=== PATIENT | male | born 1960 | race Caucasian/White ===

== ENCOUNTER → 2019-12-08 16:01 | Outpatient (CLI) | payer OTHER, SELFPAY ==
--- NOTE | ~2019-12-08 | XR_ITS ---
EXAMINATION: XR chest 2V 12/08/2019 16:10 INDICATION: Left chest pain PROCEDURE: 2 view chest COMPARISON: 09/10/2015 FINDINGS: The lungs are clear. The cardiomediastinal silhouette is within normal limits. There are no pleural effusions. There is no pneumothorax suspected. IMPRESSION: 1: NO ACUTE CARDIOPULMONARY DISEASE. Reviewed, dictated and finalized at location A.
== END ==
PROVIDERS: PCP Family Medicine Adolescent Medicine; Visit Provider Physician Assistant
DX: R07.89 Other chest pain (principal)
CPT/HCPCS: 71046

== ENCOUNTER 2020-10-26 11:25 | Outpatient (NON) | payer OTHER, SELFPAY ==
[2020-10-26 21:41] LABS: SARS-CoV-2 RNA PCR Negative
== END 2020-10-26 11:26 ==
LOC: ANHCOVIDDT 11:26
PROVIDERS: PCP Family Medicine Adolescent Medicine; Visit Provider Family Medicine Adolescent Medicine
DX: R05 Cough (principal); R50.9 Fever, unspecified; R53.83 Other fatigue; Z20.822 Contact with and (suspected) exposure to COVID-19
CPT/HCPCS: C9803; U0003; U0005

== ENCOUNTER 2020-11-30 16:02 | Outpatient (CLI) | payer OTHER, SELFPAY | END 2020-11-30 16:03 | disposition home or self-care (01) | LOC: ANHCOVIDVC 16:02 | PROVIDERS: PCP Family Medicine Adolescent Medicine | DX: Z23 Encounter for immunization (principal) | CPT/HCPCS: 0001A; 91300 ==

== ENCOUNTER 2020-12-21 15:58 | Outpatient (CLI) | payer OTHER, SELFPAY | END 2020-12-21 15:59 | disposition home or self-care (01) | LOC: ANHCOVIDVC 15:58 | PROVIDERS: PCP Family Medicine Adolescent Medicine | DX: Z23 Encounter for immunization (principal) | CPT/HCPCS: 0002A; 91300 ==

== ENCOUNTER 2022-08-21 11:11 | Emergency (ER) | payer OTHER, SELFPAY ==
[2022-08-21 11:32] VITALS: BP 137/90; PULSE 3; RESP 16; TEMP 35.8; O2SAT 96
--- NOTE | 2022-08-21 11:48 | ED.URI ---
HPI - URI/Sore Throat General Chief Complaint: Upper Respiratory Infection Stated Complaint: sore throat Time Seen by Provider: 08/21/22 11:50 Source: patient and RN notes reviewed Mode of arrival: ambulatory Limitations: no limitations History of Present Illness HPI Narrative: 61-year-old male presents with concern for right ear pain, postnasal drainage, sinus congestion. Reports over one-week history of symptoms. Reports he has not taken anything [id number] for his symptoms. MD elicited complaint: sore throat and other (Ear pain) Related Data Allergies Allergy/AdvReac Type Severity Reaction Status Date / Time Sulfa (Sulfonamide Allergy Mild HIVES Verified 08/21/22 11:30 Antibiotics) Review of Systems Review of Systems: CONSTITUTIONAL: Denies malaise, chills, sweats, or fever. EYES: Denies visual changes, redness, or discharge. ENT: Reports rhinorrhea, congestion, otalgia and sore throat. CARDIOVASCULAR: Denies chest pain, palpitations, or edema. RESPIRATORY: Denies cough. Denies dyspnea. GASTROINTESTINAL: Denies abdominal pain, nausea, vomiting, diarrhea SKIN: Denies rash or itching. MUSCULOSKELETAL: Denies myalgia. NEUROLOGIC: Denies headache. All systems reviewed & are unremarkable except as noted in HPI and below PMFSH Past Medical History Medical History Normal colonoscopy 10/14 Surgical History Surgical History History of ventral hernia repair 2004 Family History Family History (Updated 10/18/21 @ 10:02 by Jelena Mcallister MA) Sibling Skin cancer Grandparent Heart disease Social History Social History (Updated 10/18/21 @ 10:03 by Jelena Mcallister MA) Smoking status: Never smoker Second hand tobacco smoke exposure: No Alcohol intake: current Alcohol use details: socially Substance use: never Substance use type: does not use Gender identity (if verbalized by the patient): Male Sexual Orientation (if Verbalized by the Patient): Straight or Heterosexual Spiritual care concerns: No Agree to blood products: Yes Comments At time of signature, agree with nursing past medical, surgical, social and family history. There is no relevant family history pertinent to the presenting complaint Exam Narrative: GENERAL: Well-appearing, well-nourished, and in no acute distress. HEAD: Normocephalic EYES: PERRLA, conjunctivae clear ENT: Nares clear, turbinates edematous and erythematous, clear discharge. Mucous membranes moist. Left TM pearly somers with dull light reflex right TM erythematous; no tragal tenderness. Oropharynx erythematous without lesions. Tonsils not enlarged and without exudate, no drooling, no hoarseness, no trismus, uvula midline. NECK: Supple. No lymphadenopathy CHEST: Clear to auscultation, breath sounds equal. No wheezing, rhonchi, rales, or stridor. No respiratory distress, speaks in full sentences. HEART: Regular rate and rhythm. No murmur heard. SKIN: Warm, dry, no rash. NEURO: Alert and oriented x3. PSYCH: Normal mood and affect Course Course Emergency Course: Patient is aware of diagnosis, understands and agrees to treatment plan. Anticipatory guidance given. Patient agrees to follow-up as directed and is aware of reasons to seek care at the emergency department. Portions of this record may have been created with voice recognition software Level of Care: Express Care Visit Vital Signs Vital signs: Vital Signs Temperature 96.4 F L 08/21/22 11:32 Pulse Rate 3 L 08/21/22 11:32 Respiratory Rate 16 08/21/22 11:32 Blood Pressure 137/90 08/21/22 11:32 Pulse Oximetry 96 08/21/22 11:32 Oxygen Delivery Room Air 08/21/22 11:32 Temperature 96.4 F L 08/21/22 11:32 Pulse Rate 3 L 08/21/22 11:32 Respiratory Rate 16 08/21/22 11:32 Blood Pressure 137/90 08/21/22 11:32 Pulse Oximetry 96 08/21/22 11:32 Oxygen Deli
== END 2022-08-21 12:07 | disposition home or self-care (01) ==
PROVIDERS: Emergency Provider Nurse Practitioner; PCP Family Medicine Adolescent Medicine
DX: H66.91 Otitis media, unspecified, right ear (principal)
CPT/HCPCS: 99213; G0463

== ENCOUNTER 2023-05-16 00:28 | Day surgery (SDC) | payer OTHER, SELFPAY ==
[2023-05-01 12:25] VITALS: BMI 28.8
[2023-05-16 10:05] VITALS: BP 130/88; PULSE 83; RESP 18; TEMP 36.2; O2SAT 95; BMI 27.8
[2023-05-16] MEDS: LACTATED RINGERS 1,000 ML 150 ML IV CONT (10:18)
--- NOTE | 2023-05-16 10:52 | PM.HPGS ---
History of Present Illness History of Present Illness Consent: Risks, benefits, and alternatives have been discussed and questions answered. Patient agrees to proceed with procedure. Chief complaint: hx colon polyps Narrative: Dc Hsieh is a 62 year old male Presents for screening colonoscopy. Patient's current weight appetite and bowel movements are normal. Patient denies abdominal pain. He has had no bleeding. Family history noncontributory. Patient had adenomatous colon polyp removed from the colon 2011. No polyps identified in 2016. Patient presents today for neoplasia screening. Review of Systems Review of Systems: Review of systems noncontributory. [facility] Past Medical History Medical History Normal colonoscopy 10/14 Surgical History Surgical History History of ventral hernia repair 2004 Family History Family History (Updated 02/27/23 @ 15:07 by Isaura Chávez APRN) Sibling Skin cancer Liver cancer Grandparent Heart disease Mother Cerebrovascular accident Social History Social History Smoking status: Never smoker Second hand tobacco smoke exposure: No Alcohol intake: current Alcohol use details: occasional Substance use: never Substance use type: does not use Lack of Transportation: No Lack of Food: Never True Current Housing: I Have Housing Concerned About Future Housing: No Difficulty Paying Gas/Electric Bills: No Difficulty Paying for Meds: No Currently Unemployed: No Education: Associate Degree Difficulty w/ Childcare or Family Care: No Living arrangements: with family Occupation/Education: retired Gender identity (if verbalized by the patient): Male Sexual Orientation (if Verbalized by the Patient): Straight or Heterosexual Spiritual care concerns: No Agree to blood products: Yes Meds Home Medications and Allergies Home Medications Medication Instructions Recorded Confirmed Type albuterol sulfate 90 mcg/actuation 2 inh inhalation Q4H PRN shortness 02/20/23 05/16/23 Rx aerosol inhaler of breath or wheezing #25.5 grams sildenafil 100 mg tablet 100 mg PO DAILY PRN sexual 02/21/23 05/16/23 Rx activity #6 tabs fluticasone propionate 220 2 puff inhalation Q12H #36 grams 02/27/23 05/16/23 Rx mcg/actuation HFA aerosol inhaler (Flovent HFA) Allergies Allergy/AdvReac Type Severity Reaction Status Date / Time Sulfa (Sulfonamide Allergy Mild HIVES Verified 05/16/23 10:08 Antibiotics) Vital Signs Vital Signs - 24 hr 05/16/23 10:05 Temperature 97.2 F L Pulse Rate 83 Respiratory Rate 18 Blood Pressure 130/88 Pulse Oximetry 95 Oxygen Delivery Room Air Exam Narrative: Physical exam reveals patient to be alert. Vital signs stable. HEENT exam is unremarkable. Patient is anicteric. Lungs are clear to auscultation and percussion. Heart is without murmur or extra sounds. Abdomen bowel sounds are present soft nontender with no organomegaly. Digital external rectal exam normal. Assessment and Plan Assessment and plan (1) Encounter for screening colonoscopy: Code(s): Z12.11 - Encounter for screening for malignant neoplasm of colon Status: Acute Assessment and Plan: Patient presents for screening colonoscopy. He has a very distant history of colon polyps. Further recommendations will be given after endoscopy.
--- NOTE | 2023-05-16 10:53 | WPDANESEPPF ---
Anes - Initial Pre Proc Eval Procedure: Operation Date: 05/16/23 11:15 Proposed Procedures p Colonoscopy - Alpesh Wong MD Date/Time: 05/16/23 10:53 Surgeon: Alpesh Wong MD Pre Op Diagnosis: hx colon polyps Patient Data Age: 62 Gender: M Height: 1.78 m Weight: 88.2 kg Last Vital Signs Temp 97.2 F L 05/16/23 10:05 Pulse 83 05/16/23 10:05 Resp 18 05/16/23 10:05 BP 130/88 05/16/23 10:05 Pulse Ox 95 05/16/23 10:05 O2 Del Method Room Air 05/16/23 10:05 Allergies Allergy/AdvReac Type Severity Reaction Status Date / Time Sulfa (Sulfonamide Allergy Mild HIVES Verified 05/16/23 10:08 Antibiotics) Home Medications Medication Instructions Recorded Confirmed Type albuterol sulfate 90 mcg/actuation 2 inh inhalation Q4H PRN shortness 02/20/23 05/16/23 Rx aerosol inhaler of breath or wheezing #25.5 grams sildenafil 100 mg tablet 100 mg PO DAILY PRN sexual 02/21/23 05/16/23 Rx activity #6 tabs fluticasone propionate 220 2 puff inhalation Q12H #36 grams 02/27/23 05/16/23 Rx mcg/actuation HFA aerosol inhaler (Flovent HFA) Patient hx anesthesia problems: none Family hx anesthesia problems: none Results Review: All pre-operative results and documents have been reviewed as part of the pre-operative evaluation. [facility] Past Medical History Medical History Normal colonoscopy 10/14 Surgical History Surgical History History of ventral hernia repair 2004 Family History Family History (Updated 02/27/23 @ 15:07 by Isaura Chávez APRN) Sibling Skin cancer Liver cancer Grandparent Heart disease Mother Cerebrovascular accident Social History Social History Smoking status: Never smoker Second hand tobacco smoke exposure: No Alcohol intake: current Alcohol use details: occasional Substance use: never Substance use type: does not use Lack of Transportation: No Lack of Food: Never True Current Housing: I Have Housing Concerned About Future Housing: No Difficulty Paying Gas/Electric Bills: No Difficulty Paying for Meds: No Currently Unemployed: No Education: Associate Degree Difficulty w/ Childcare or Family Care: No Living arrangements: with family Occupation/Education: retired Gender identity (if verbalized by the patient): Male Sexual Orientation (if Verbalized by the Patient): Straight or Heterosexual Spiritual care concerns: No Agree to blood products: Yes Anes - Eval Final PreProcedure Day of Procedure 05/16/23 10:53 Patient weight: normal Heart: regular rate and rhythm Lungs: clear to auscultation Airway: Mallampati scale class II Neurological: alert and oriented Last oral intake: >/= 8 hours ASA classification: II Emergent: no Anesthetic plan: proceed Anesthesia type and monitoring: general GIVS and standard monitoring Results Review: All pre-operative results and documents have been reviewed as part of the pre-operative evaluation. Informed Consent: The patient's anesthetic plan and its attendant risks and benefits were discussed with the patient/family/POA. Questions were solicited and answers provided to the satisfaction of the patient/family/POA.
[2023-05-16 11:41] VITALS: BP 100/76; PULSE 79; RESP 18; O2SAT 92
[2023-05-16 11:51] VITALS: BP 112/78; PULSE 81; RESP 20; O2SAT 95
[2023-05-16 12:01] VITALS: BP 120/82; PULSE 81; RESP 16; O2SAT 96
== END 2023-05-16 12:10 | disposition home or self-care (01) ==
PROVIDERS: PCP Family Medicine Adolescent Medicine; Visit Provider Internal Medicine Gastroenterology
PROC: 0DJD8ZZ Inspection of Lower Intestinal Tract, Via Natural or Artificial Opening Endoscopic (ICD-10-PCS; CPT 45378; principal; 2023-05-16 11:15)
DX: Z12.11 Encounter for screening for malignant neoplasm of colon (principal); K63.5 Polyp of colon; D12.4 Benign neoplasm of descending colon; D12.8 Benign neoplasm of rectum; K64.8 Other hemorrhoids; Z79.51 Long term (current) use of inhaled steroids
CPT/HCPCS: 45385; 88305; J2704; J7120